=== PATIENT | female | born 1930 | race Caucasian/White ===

== ENCOUNTER 2016-10-21 15:37 | Emergency (ER) | payer OTHER ==
[~2016-10-21 15:37] MED LIST: ALTACE10 MG PO; ASPIR 8181 MG PO; CORGARD40 MG PO; FLAGYL500 MG PO; LACTINEX PO; LEVAQUIN500 MG PO; PRAVACHOL40 MG PO; PRILOSEC20 M1 PO; PROCARDIA XL60 MG PO; TYLENOL325 MG PO; ZOFRAN4 MG PO
== END 2016-10-21 18:37 | disposition home or self-care (01) ==
LOC: ER 15:37
DX: I10 Essential (primary) hypertension (principal); E78.5 Hyperlipidemia, unspecified; Z90.710 Acquired absence of both cervix and uterus; Z79.82 Long term (current) use of aspirin; Z79.899 Other long term (current) drug therapy; Z88.0 Allergy status to penicillin; Z88.1 Allergy status to other antibiotic agents; Z88.8 Allergy status to other drugs, medicaments and biological substances
CPT/HCPCS: 36415

== ENCOUNTER 2016-10-23 08:23 | Emergency (ER) | payer OTHER | END 2016-10-23 12:21 | disposition home or self-care (01) | LOC: ER 08:23 | DX: I10 Essential (primary) hypertension (principal); E78.5 Hyperlipidemia, unspecified; I25.10 Atherosclerotic heart disease of native coronary artery without angina pectoris; Z90.710 Acquired absence of both cervix and uterus; Z79.82 Long term (current) use of aspirin; Z79.899 Other long term (current) drug therapy; Z88.0 Allergy status to penicillin; Z88.1 Allergy status to other antibiotic agents; Z88.8 Allergy status to other drugs, medicaments and biological substances | CPT/HCPCS: 36415; 96374; 96375; J2060 ==